=== PATIENT | male | born 1995 | race Caucasian/White ===

== ENCOUNTER 2017-12-29 22:32 | Emergency (ER) | payer OTHER ==
[2017-12-29] MEDS ORDERED: Adacel (T-DAP) 0.5 ML VIAL ONE (23:02)
[2017-12-29] MEDS ORDERED: Cephalexin 500 MG CAP ONE (23:02)
--- NOTE | 2017-12-29 23:22 | RAD ---
RIGHT HAND THREE VIEWS: 12/29/17 HISTORY: Right hand injury. Cut with glass. FINDINGS: No acute fracture, dislocation, or radiopaque foreign bodies are apparent. Lucency about t he soft tissues of the thumb may represent the soft tissue laceration. IMPRESSION: No acute osseous abnormalities are demonstrated. Please note that glass is often radiolucent on radio graph. POS: [facility]
[2017-12-29] MEDS ORDERED: Bacitracin Zinc 1 Packet ONE (23:51)
== END 2017-12-30 00:09 | disposition home or self-care (01) ==
LOC: SCSER 22:32
DX: S56.021A Laceration of flexor muscle, fascia and tendon of right thumb at forearm level, initial encounter (principal); F32.9 Major depressive disorder, single episode, unspecified; F17.210 Nicotine dependence, cigarettes, uncomplicated; Z79.899 Other long term (current) drug therapy; Z23 Encounter for immunization; W25.XXXA Contact with sharp glass, initial encounter
CPT/HCPCS: 12002; 90471; 90715

== ENCOUNTER 2018-01-13 12:56 | Outpatient (CLI) | payer OTHER ==
[2018-01-13 14:29] LABS: #Basophils 0.1 thou/uL (0.0-0.2); #Eosinphils 0.2 thou/uL (0.0-0.7); #Lymphocytes 1.3 thou/uL (1.20-3.40); #Monocytes 0.7 thou/uL (0.11-0.59); #Neutrophils 4.4 thou/uL (1.40-6.50); %Basophils 0.8 % (0.0-1.0); %Eosinophils 2.6 % (0.0-10.0); %Lymphocytes 18.9 % (28.0-48.0); %Monocytes 10.7 % (0.0-4.0); Hemoglobin 16.8 g/dL (14.0-18.0); Mean Corpuscular HGB CONC 33.3 g/dL (32.0-36.0); Mean Corpuscular Hemoglobin 32.2 pg (25.0-35.0); Mean Corpuscular Volume 96.5 fL (78.0-98.0); Mean Platelet Volume 7.5 fL (7.4-10.4); Platelet Count 268 thou/uL (130-400); RBC Distribution Width 12.3 % (11.5-14.5); Red Blood Cell (RBC) Count 5.21 mill/uL (4.00-5.20); White Blood Cell (WBC) Count 6.6 thou/uL (4.8-10.8)
== END 2018-01-13 12:57 | disposition home or self-care (01) ==
LOC: LABBT 12:56
PROVIDERS: ATTEND Orthopaedic Surgery Hand Surgery
DX: Z01.812 Encounter for preprocedural laboratory examination (principal); S61.001A Unspecified open wound of right thumb without damage to nail, initial encounter
CPT/HCPCS: 85025; 85652

== ENCOUNTER 2018-01-15 13:16 | Day surgery (SDC) | payer OTHER, SELFPAY ==
[2018-01-13 13:53] VITALS: BMI 21.2
[~2018-01-15 13:16] MED LIST: Dexamethasone 20 MG/5 ML VIAL ONE; Lidocaine 1% PF 5 ML VIAL ONE; Ondansetron HCl/PF 4 MG/2 ML Vial ONE; PROPOFOL 200 MG/20 ML VIAL ONE; ePHEDrine/0.9% NaCl/PF SYRINGE 50 mg/10 ml ONE
[2018-01-15] MEDS ORDERED: CEFAZOLIN/Water 2 GM/20 ML SYRINGE ONE (13:39)
[2018-01-15] MEDS ORDERED: Bupivacaine PF 0.5% 30 ML VIAL ONE (16:17)
[2018-01-15] MEDS ORDERED: Sodium Chloride 0.9% 0 ML ONE (16:17)
[2018-01-15] MEDS ORDERED: Bacitracin Zinc Ointment 30 gm TUBE ONE (16:17)
[2018-01-15] MEDS ORDERED: Betamet Acet/Betamet Na Ph 30 MG/5 ML VIAL ONE (16:17)
[2018-01-15] MEDS ORDERED: Fentanyl 100 MCG/2 ML VIAL ONE (16:19)
[2018-01-15] MEDS ORDERED: Fentanyl 250 MCG/5 ML VIAL ONE (16:19)
[2018-01-15] MEDS ORDERED: Famotidine/PF 20 mg/2ml Vial ONE (16:20)
[2018-01-15] MEDS ORDERED: Midazolam HCl 2 mg/2 ml Vial ONE (18:15)
[2018-01-15] MEDS ORDERED: HYDROmorphone 2 MG/ML VIAL ONE (18:15)
[2018-01-15] MEDS ORDERED: Ketorolac Tromethamine 30 MG/ML VIAL ONE ×2 (20:35→20:44)
--- NOTE | 2018-01-18 04:54 | OP ---
DATE OF SURGERY: 01/15/2018 PREOPERATIVE DIAGNOSES: 1. Possible digital nerve laceration, radial. 2. Flexor pollicis longus complete laceration between the pulleys. POSTOPERATIVE DIAGNOSES: 1. No laceration found. 2. Possible digital nerve laceration, radial. 3. Flexor pollicis longus complete laceration between the pulleys. 4. All wounds with tendon involvement. PROCEDURES PERFORMED: 1. Flexor pollicis longus retrieval repair, right thumb, using Garcia-Nia 8-strand technique. 2. Digital nerve neuroplasty, radial and ulnar visualized throughout the entire area of the lacerati on. 3. Wound closure. FINDINGS: The patient had a 2-cm wound that was only partially closed and opened in the middle. ESTIMATED BLOOD LOSS: 10 mL. TOURNIQUET TIME: 67 minutes. Complete flexor pollicis longus laceration with retraction . DESCRIPTION OF PROCEDURE: After successful general LMA technique, limb was prepped and draped. Then , we gave the patient 15 mL of 0.5% Marcaine block proximal to the area of the laceration. The lacer ation was over the A1 lenora region. We then carried the incision zigzag Liz, 2 cm distal and 0.5 cm proximal. We visualized the radia l digital nerve and ulnar digital nerve right away and then there was marked amount of hematoma of th e ulnar digital nerve, and over the radial digital nerve after visualizing the ulnar digital nerve co mpletely. We performed neuroplasty on both until we completely visualized both nerves throughout the field, and distally and proximally there was no laceration here. We then could see that the distal end of this repair coursed underneath the central oblique lenora and the proximal end was tracked int o the palm. We then dissected free, visualized it partially, we used a Tripp tendon retriever and brought the tendon back into the thumb lenora system. We then pinned this with a Arun needle, debri ded the 1 to 0.5 mm both tendon edges, and then used a Garcia-Nia 8-strand technique with a running Pro nayeli around them using 4-0 Supramid looped suture. Technique gave excellent apposition, no gap forma tion was seen, and the tendon glide was excellent within the available lenora system. We then deflated the tourniquet, there was excellent pink return of flow, 1-second refill, and we obt ained hemostasis. We then closed the skin with a simple 4-0 nylon and the thumb MP joint was f lexed approximately 40 degrees. We then splinted the thumb in this position with a long-arm splint b ecause of the patient's age and fear of lack of compliance. The patient then left the operating room to recovery room with excellent wound coverage, pink digit, and appropriate tension seen clinically.
== END 2018-01-15 21:40 | disposition home or self-care (01) ==
LOC: SDC 13:16
PROVIDERS: ATTEND Orthopaedic Surgery Hand Surgery
PROC: 01Q50ZZ Repair Median Nerve, Open Approach (ICD-10-PCS; principal; 2018-01-15)
PROC: 0KQC0ZZ Repair Right Hand Muscle, Open Approach (ICD-10-PCS; principal; 2018-01-15)
DX: S66.021A Laceration of long flexor muscle, fascia and tendon of right thumb at wrist and hand level, initial encounter (principal)
CPT/HCPCS: 96372; 96374; A4216; J0131; J0702; J1100; J1170; J1885; J2001; J2250; J2405; J2704; J3010; J3490; S0020; S0028